=== PATIENT | female | born 1985 | race Caucasian/White ===

== ENCOUNTER 2017-05-10 16:38 | Emergency (ER) | payer OTHER ==
[2017-05-10 16:53] VITALS: RESP 17
--- NOTE | 2017-05-10 17:27 | ED ---
Female Urogenital HPI - General Chief complaint: Vaginal Bleeding Stated complaint: bleeding, 6 weeks preg Time Seen by Provider: 05/10/17 16:54 Source: patient Mode of arrival: ambulatory Limitations: no limitations - History of Present Illness Initial comments: 31-year-old female patient presents to the emergency department today for evaluation of vaginal bleeding. Patient reports that she is approximately 5-6 weeks . States her last menstrual period was 03/31/2017. She is . Patient states that last evening she started to have light brown vaginal discharge with wiping. She states that it has persisted throughout the day today. States she also did have some right-sided abdominal cramping earlier today. She denies any bright red bleeding. Denies any dysuria, hematuria, urinary urgency, urinary frequency. Patient denies any recent rash, fever, chills, shortness breath, chest pain, nausea, vomiting, diarrhea, constipation, back pain, numbness, tingling, dizziness, weakness, headache, visual changes, or any other complaints. Patient has not yet had any care or confirmed intrauterine . Last Menstrual Period: 03/31/17 - Related Data Home Medications Medication Instructions Recorded Confirmed Gsd-Uyxp-Pfryo Acid 1 cap PO DAILY 05/10/17 05/10/17 [-U Capsule (formulary)] Allergies Allergy/AdvReac Type Severity Reaction Status Date / Time sulfamethoxazole Allergy Rash/Hives Verified 05/10/17 17:00 [From Bactrim] trimethoprim [From Bactrim] Allergy Rash/Hives Verified 05/10/17 17:00 Review of Systems ROS Statement: Those systems with pertinent positive or pertinent negative responses have been documented in the HPI. ROS Other: All systems not noted in ROS Statement are negative. Past Medical History Past Medical History: No Reported History History of Any Multi-Drug Resistant Organisms: None Reported Past Surgical History: No Surgical Hx Reported Past Psychological History: No Psychological Hx Reported Smoking Status: Current some day smoker Past Alcohol Use History: None Reported Past Drug Use History: None Reported General Exam Limitations: no limitations General appearance: alert, in no apparent distress, other (This is a well- developed, well-nourished adult female patient in no acute distress. Vital signs upon presentation were temperature 97.7F, pulse 94, respirations 17, blood pressure 127/68, pulse ox 98% on room air.) Eye exam: Present: normal appearance, PERRL, EOMI. Absent: scleral icterus, conjunctival injection, periorbital swelling ENT exam: Present: normal exam, normal oropharynx, mucous membranes moist Respiratory exam: Present: normal lung sounds bilaterally. Absent: respiratory distress, wheezes, rales, rhonchi, stridor Cardiovascular Exam: Present: regular rate, normal rhythm, normal heart sounds. Absent: systolic murmur, diastolic murmur, rubs, gallop, clicks GI/Abdominal exam: Present: soft, normal bowel sounds. Absent: distended, tenderness, guarding, rebound, rigid External exam: Present: normal external exam Speculum exam: Present: vaginal bleeding (Light brown, small amount). Absent: normal speculum exam By manual exam: Present: normal by manual exam. Absent: adnexal tenderness Back exam: Present: normal inspection. Absent: CVA tenderness (R), CVA tenderness (L) Neurological exam: Present: alert, oriented X3, CN II-XII intact Psychiatric exam: Present: normal affect, normal mood Skin exam: Present: warm, dry, intact, normal color. Absent: rash Course Vital Signs 05/10/17 05/10/17 16:48 19:30 Temperature 97.7 F 98.2 F Pulse Rate 94 74 Respiratory 17 17 Rate Blood Pressure 127/68 111/62 O2 Sat by Pulse 98 99 Oximetry Medical Decision Making - Medical Decision Making 31-year-old female patient presented to the emergency department today for complaints of vaginal bleeding and right-sided abdominal cramping. Patient reports that she is approximately 5 weeks . States that she had initial positive test 2 weeks ago. Physical examination was unremarkable. Physical exam was performed and did show light vaginal bleeding, round in color. Bimanual exam is unremarkable. Urinalysis was inconclusive and has been sent for culture. HCG was 368. Blood type is A+. Ultrasound was obtained and showed no current intrauterine . There was however several anechoic areas that were unclear etiology and could reflect early . There is also evidence of to uterine fibroids. Did discuss results with the patient. She is instructed to obtain repeat hCG testing in 72 hours. She is instructed to establish with an [facility] for further evaluation, she was given on-call phone number. She is instructed to return here immediately for any new, worsening, or concerning symptoms. She verbalizes understanding and agrees with this plan. - Lab Data Result diagrams: 05/10/17 17:37 05/10/17 17:37 Lab Results 05/10/17 05/10/17 05/10/17 Range/Units 17:37 17:37 17:37 WBC 7.3 (3.8-10.6) k/uL RBC 4.99 (3.80-5.40) m/uL Hgb 15.9 (11.4-16.0) gm/dL Hct 47.6 H (34.0-46.0) % MCV 95.4 (80.0-100.0) fL MCH 31.9 (25.0-35.0) pg MCHC 33.5 (31.0-37.0) g/dL RDW 12.3 (11.5-15.5) % Plt Count 218 (150-450) k/uL Neutrophils % 50 % Lymphocytes % 38 % Monocytes % 6 % Eosinophils % 3 % Basophils % 1 % Neutrophils # 3.7 (1.3-7.7) k/uL Lymphocytes # 2.8 (1.0-4.8) k/uL Monocytes # 0.4 (0-1.0) k/uL Eosinophils # 0.2 (0-0.7) k/uL Basophils # 0.1 (0-0.2) k/uL Sodium 142 (137-145) mmol/L Potassium 4.5 (3.5-5.1) mmol/L Chloride 107 (98-107) mmol/L Carbon Dioxide 25 (22-30) mmol/L Anion Gap 10 mmol/L BUN 14 (7-17) mg/dL Creatinine 0.61 (0.52-1.04) mg/dL Est GFR (MDRD) Af Amer >60 (>60 ml/min/1.73 sqM) Est GFR (MDRD) Non-Af >60 (>60 ml/min/1.73 sqM) Glucose 93 (74-99) mg/dL Calcium 9.6 (8.4-10.2) mg/dL Total Bilirubin 0.6 (0.2-1.3) mg/dL AST 36 (14-36) U/L ALT 29 (9-52) U/L Alkaline Phosphatase 68 (38-126) U/L Total Protein 7.6 (6.3-8.2) g/dL Albumin 4.4 (3.5-5.0) g/dL HCG, Quant 368.8 mIU/mL Urine Color Urine Appearance (Clear) Urine pH (5.0-8.0) Ur Specific [place] (1.001-1.035) Urine Protein (Negative) Urine Glucose (UA) (Negative) Urine Ketones (Negative) Urine Blood (Negative) Urine Nitrite (Negative) Urine Bilirubin (Negative) Urine Urobilinogen (<2.0) mg/dL Ur Leukocyte Esterase (Negative) Urine RBC (0-5) /hpf Urine WBC (0-5) /hpf Ur Squamous Epith Cells (0-4) /hpf Trichomonas Ag (Rapid) (Negative) Blood Type A Positive Blood Type Recheck No 05/10/17 05/10/17 Range/Units 17:37 19:30 WBC (3.8-10.6) k/uL RBC (3.80-5.40) m/uL Hgb (11.4-16.0) gm/dL Hct (34.0-46.0) % MCV (80.0-100.0) fL MCH (25.0-35.0) pg MCHC (31.0-37.0) g/dL RDW (11.5-15.5) % Plt Count (150-450) k/uL Neutrophils % % Lymphocytes % % Monocytes % % Eosinophils % % Basophils % % Neutrophils # (1.3-7.7) k/uL Lymphocytes # (1.0-4.8) k/uL Monocytes # (0-1.0) k/uL Eosinophils # (0-0.7) k/uL Basophils # (0-0.2) k/uL Sodium (137-145) mmol/L Potassium (3.5-5.1) mmol/L Chloride (98-107) mmol/L Carbon Dioxide (22-30) mmol/L Anion Gap mmol/L BUN (7-17) mg/dL Creatinine (0.52-1.04) mg/dL Est GFR (MDRD) Af Amer (>60 ml/min/1.73 sqM) Est GFR (MDRD) Non-Af (>60 ml/min/1.73 sqM) Glucose (74-99) mg/dL Calcium (8.4-10.2) mg/dL Total Bilirubin (0.2-1.3) mg/dL AST (14-36) U/L ALT (9-52) U/L Alkaline Phosphatase (38-126) U/L Total Protein (6.3-8.2) g/dL Albumin (3.5-5.0) g/dL HCG, Quant mIU/mL Urine Color Light Yellow Urine Appearance Clear (Clear) Urine pH 6.0 (5.0-8.0) Ur Specific [place] 1.005 (1.001-1.035) Urine Protein Negative (Negative) Urine Glucose (UA) Negative (Negative) Urine Ketones Negative (Negative) Urine Blood Small H (Negative) Urine Nitrite Negative (Negative) Urine Bilirubin Negative (Negative) Urine Urobilinogen <2.0 (<2.0) mg/dL Ur Leukocyte Esterase Small H (Negative) Urine RBC 1 (0-5) /hpf Urine WBC 11 H (0-5) /hpf Ur Squamous Epith Cells 8 H (0-4) /hpf Trichomonas Ag (Rapid) Negative (Negative) Blood Type Blood Type Recheck - Radiology Data Radiology results: report reviewed, image reviewed Transvaginal ultrasound was obtained report was reviewed in its entirety, there is no IUP seen at this time, to an anechoic areas within endometrium too early to calculate a early gestation versus other etiology. Multiple anechoic area scattered throughout the myometrium as well, to probable fibroids anterior uterine fundus. [place] by Dr. Zamora shows no adnexal mass. No evidence of ectopic . No evidence of true uterine gestational sac. Disposition Clinical Impression: Threatened , Vaginal bleeding affecting early Disposition: HOME SELF-CARE Condition: Good Instructions: Threatened Miscarriage (ED), Uterine Fibroids (ED), First Trimester Vaginal Bleed (ED) Additional Instructions: Rest and increase fluids. Follow-up with [facility] as soon as possible. Monitor bleeding, this worsens or changes presented back to the emergency department. Follow-up with her primary care physician for recheck in 1-2 days. Return here immediately for any new, worsening, or concerning symptoms. Referrals: None,Stated [Primary Care Provider] - 1-2 days Judith Collins MD [STAFF PHYSICIAN] - 1-2 days Time of Disposition: 19:11
[2017-05-10 17:57] LABS: Basophils # (A) 0.1 k/uL (0-0.2); Basophils % (A) 1 %; Eosinophils # (A) 0.2 k/uL (0-0.7); Eosinophils % (A) 3 %; HCT 47.6 % (34.0-46.0); HGB 15.9 gm/dL (11.4-16.0); Lymphocytes # (A) 2.8 k/uL (1.0-4.8); Lymphocytes % (A) 38 %; MCH 31.9 pg (25.0-35.0); MCHC 33.5 g/dL (31.0-37.0); MCV 95.4 fL (80.0-100.0); Mean Platelet Volume 6.7; Monocytes # (A) 0.4 k/uL (0-1.0); Monocytes % (A) 6 %; Neutrophils # (A) 3.7 k/uL (1.3-7.7); Neutrophils % (A) 50 %; Platelet Count 218 k/uL (150-450); RBC 4.99 m/uL (3.80-5.40); RDW 12.3 % (11.5-15.5); WBC 7.3 k/uL (3.8-10.6)
[2017-05-10 17:59] LABS: Appearance,Urine Clear (Clear); Bilirubin,Urine Negative (Negative); Blood,Urine Small (Negative); Color,Urine Light Yellow; Glucose,Urine (UA) Negative (Negative); Ketones,Urine Negative (Negative); Leukocyte Esterase,Urine Small (Negative); Nitrite,Urine Negative (Negative); Protein,Urine Negative (Negative); RBC,Urine 1 /hpf (0-5); Specific Gravity,Urine 1.005 (1.001-1.035); Squamous Epithelial Cell,Urine 8 /hpf (0-4); Urobilinogen,Urine <2.0 mg/dL (<2.0); WBC,Urine 11 /hpf (0-5)
[2017-05-10 18:06] LABS: ALT 29 U/L (9-52); AST 36 U/L (14-36); Albumin 4.4 g/dL (3.5-5.0); Alkaline Phosphatase 68 U/L (38-126); Anion Gap 10 mmol/L; Blood Urea Nitrogen 14 mg/dL (7-17); Calcium 9.6 mg/dL (8.4-10.2); Carbon Dioxide 25 mmol/L (22-30); Chloride 107 mmol/L (98-107); Glucose 93 mg/dL (74-99); Sodium 142 mmol/L (137-145); Total Bilirubin 0.6 mg/dL (0.2-1.3); Total Protein 7.6 g/dL (6.3-8.2)
[2017-05-10 18:23] LABS: HCG,Quantitative Serum 368.8 mIU/mL
--- NOTE | 2017-05-10 18:25 | US ---
EXAMINATION TYPE: US OB <= 14 wk fetus DATE OF EXAM: 05/10/2017 COMPARISON: NONE CLINICAL HISTORY: Pain. Pt states light vaginal bleeding that started today EXAM PERFORMED: Transvaginal (TV) and Transabdominal (TA) EXAM MEASUREMENTS: GESTATIONAL AGE / DATING Physician Established: Not yet established Dates by LMP: (5 weeks/5 days) EDC: 01/05/2018 Dates by First Scan: No prior Dates by Current Scan for: No IUP seen at this time MATERNAL ANATOMY Uterus: 10.0 x 5.2 x 6.4 Right Ovary: 3.5 x 2.1 x 2.3 Left Ovary: 3.8 x 1.9 x 2.2 Post CDS / Adnexa: wnl Presence of free fluid: No Presence of corpus luteal cyst: Right Ovary= 1.7 x 1.3 x 1.3 cm Presence of subchorionic bleed: No GESTATION / SURVEY No IUP seen at this time/ Two anechoic areas within endometrium too early to calculate if early ges tation vs. other etiology/ Multiple anechoic areas scattered throughout myometrium as well/ Two prob able fibroids anterior uterine fundus 1)= 1.6 x 1.7 x 1.6 cm 2)= 1.7 x 1.6 x 1.8 cm Date of LMP: 03/31/2017 Beta HcG (if available): Not available at time of exam IMPRESSION: No adnexal mass. No evidence of ectopic . No evidence of intrauterine gestational sac.
[2017-05-10 18:27] LABS: Potassium 4.5 mmol/L (3.5-5.1)
[2017-05-10 19:31] VITALS: BP 111/62; PULSE 74; TEMP 98.2
[2017-05-12 13:47] LABS: Chlamydia trachomatis rRNA Not detected (Not detected); Neisseria gonorrhoeae rRNA Not detected (Not detected)
== END 2017-05-10 19:32 | disposition home or self-care (01) ==
LOC: EC 16:38
DX: O20.0 Threatened abortion (principal); O99.331 Smoking (tobacco) complicating pregnancy, first trimester; F17.200 Nicotine dependence, unspecified, uncomplicated; Z79.899 Other long term (current) drug therapy; Z88.2 Allergy status to sulfonamides; Z3A.01 Less than 8 weeks gestation of pregnancy
CPT/HCPCS: 36415; 76801; 76817; 80053; 81001; 84702; 85025; 86900; 86901; 87070; 87086; 87205; 87491; 87591; 87808; 99284

== ENCOUNTER → 2017-05-12 | Outpatient (CLI) | payer SELFPAY | END | disposition home or self-care (01) | LOC: LABWHC1 12:17 | PROVIDERS: ATTEND Nurse Practitioner | DX: O26.851 Spotting complicating pregnancy, first trimester (principal); Z3A.00 Weeks of gestation of pregnancy not specified | CPT/HCPCS: 36415; 84702 ==

== ENCOUNTER → 2017-09-01 | Outpatient (CLI) | payer OTHER ==
[2017-09-01 17:40] LABS: Basophils % (A) 1 %; Eosinophils # (A) 0.3 k/uL (0-0.7); Eosinophils % (A) 4 %; HCT 45.9 % (34.0-46.0); HGB 15.4 gm/dL (11.4-16.0); Lymphocytes # (A) 2.7 k/uL (1.0-4.8); Lymphocytes % (A) 38 %; MCH 30.4 pg (25.0-35.0); MCHC 33.5 g/dL (31.0-37.0); MCV 90.6 fL (80.0-100.0); Monocytes # (A) 0.3 k/uL (0-1.0); Monocytes % (A) 5 %; Neutrophils # (A) 3.6 k/uL (1.3-7.7); Neutrophils % (A) 51 %; Platelet Count 213 k/uL (150-450); RBC 5.07 m/uL (3.80-5.40); RDW 12.4 % (11.5-15.5); WBC 7.1 k/uL (3.8-10.6)
[2017-09-01 17:52] LABS: ALT 26 U/L (9-52); AST 24 U/L (14-36); Albumin 4.2 g/dL (3.5-5.0); Alkaline Phosphatase 69 U/L (38-126); Anion Gap 14 mmol/L; Blood Urea Nitrogen 14 mg/dL (7-17); Calcium 9.2 mg/dL (8.4-10.2); Carbon Dioxide 24 mmol/L (22-30); Chloride 104 mmol/L (98-107); Cholesterol 173 mg/dL (<200); Glucose 107 mg/dL (74-99); HDL Cholesterol 48 mg/dL (40-60); LDL Cholesterol,Calculated 90 mg/dL (0-99); Potassium 4.2 mmol/L (3.5-5.1); Sodium 142 mmol/L (137-145); Total Bilirubin 0.3 mg/dL (0.2-1.3); Triglycerides 177 mg/dL (<150)
[2017-09-02 00:35] LABS: Vitamin D 25 Hydroxy 18.2 ng/mL (30.0-100.0)
[2017-09-02 01:42] LABS: HIV AB P24 Non-Reactive (Non-Reactive); HIV P24 AG Non-Reactive (Non-Reactive)
[2017-09-02 02:06] LABS: Hepatitis C IgG Antibody Reactive (Non-Reactive)
[2017-09-03 15:05] LABS: HCV Quant Log <1.08 (<1.08); HCV Quantitative Result <12 IU/mL (<12)
== END | disposition home or self-care (01) ==
LOC: LABWHC1 17:15
PROVIDERS: ATTEND Family Medicine
DX: B18.2 Chronic viral hepatitis C (principal); F41.8 Other specified anxiety disorders; Z13.220 Encounter for screening for lipoid disorders
CPT/HCPCS: 36415; 80053; 80061; 82306; 84443; 85025; 86780; 86803; 87340; 87390; 87522

== ENCOUNTER → 2020-09-26 | Outpatient (CLI) | payer OTHER ==
--- NOTE | 2020-09-27 07:48 | US ---
EXAMINATION TYPE: Transabdominal DATE OF EXAM: 09/26/2020 2:51 PM COMPARISON: NONE CLINICAL HISTORY: Confirm dates Z36. A1, smoker EXAM PERFORMED: Transabdominal (TA) EXAM MEASUREMENTS: GESTATIONAL AGE / DATING Physician Established: Not yet established Dates by LMP: (8 weeks/5 days) EDC: 05/03/2021 Dates by First Scan: No previous Dates by Current Scan for: ( 8 weeks/3 days) EDC: 05/05/2021 MATERNAL ANATOMY Uterus: 12.3 x 8.7 x 7.9cm Right Ovary: 2.7 x 1.7 x 1.3cm Left Ovary: 2.9 x 2.3 x 2.3cm Post CDS / Adnexa: wnl Presence of free fluid: no Presence of corpus luteal cyst: not identified Presence of subchorionic bleed: no GESTATION / SURVEY CRL: 1.9cm (8 weeks/3 days) Yolk Sac (normal less than 6mm): 2.9mm Heart Rate: 172 bpm Rhythm: Normal IUP: Single Date of LMP: 07/27/2020 Beta HcG (if available): NA Single, live IUP, 8 weeks/3 days, EDC: 05/05/2021, [id number]. IMPRESSION: Single intrauterine with an average ultrasound gestational age of 8 weeks and 3 days. heart rate is 172 bpm.
== END | disposition home or self-care (01) ==
LOC: RADUSWWP 14:11
PROVIDERS: ATTEND Obstetrics & Gynecology
DX: Z36.89 Encounter for other specified antenatal screening (principal); O36.8310 Maternal care for abnormalities of the fetal heart rate or rhythm, first trimester, not applicable or unspecified; Z3A.08 8 weeks gestation of pregnancy
CPT/HCPCS: 76801

== ENCOUNTER 2021-04-27 06:00 | Inpatient (IN) | payer OTHER ==
--- NOTE | 2021-04-26 07:45 | P.HPOB ---
History of Present Illness H&P Date: 04/26/21 Chief Complaint: Requested induction of labor This patient is a pleasant 35-year-old 5 para 3 female estimated date of confinement 05/02/2021 estimated gestational age 39 weeks who presents to labor and delivery for requested induction of labor. Patient's care is complicated by advanced for maternal age. She did have a normal genetic testing done however did decline maternal medicine evaluation. Patient most recently has developed facial pain and was found to have a tooth abscess. Patient now is requesting induction of labor. She has had normal testing including nonstress tests and growth ultrasounds. Review of Systems Constitutional: Reports as per HPI Genitourinary: Reports Menstruation: Reports amenorrhea Past Medical History Past Medical History: No Reported History Additional Past Medical History / Comment(s): previous 3 term vaginal deliveries. Patient is a recovered IV drug user (heroin) but states that she has not used any opioids in 4 years. History of Any Multi-Drug Resistant Organisms: None Reported Past Surgical History: No Surgical Hx Reported Past Anesthesia/Blood Transfusion Reactions: No Reported Reaction Past Psychological History: No Psychological Hx Reported Past Alcohol Use History: None Reported Past Drug Use History: Heroin, Marijuana Medications and Allergies Home Medications Medication Instructions Recorded Confirmed Type Acetaminophen Tab [Tylenol Tab] 1,000 mg PO QID PRN 04/23/21 04/23/21 History Amoxicillin/Potassium Clav 1 tab PO Q12HR #20 tab 04/23/21 Rx [Augmentin 875-125 Tablet] Fexofenadine HCl [Mikayla Allergy] 180 mg PO DAILY 04/23/21 04/23/21 History diphenhydrAMINE [Benadryl] 25 mg PO DAILY 04/23/21 04/23/21 History Allergies Allergy/AdvReac Type Severity Reaction Status Date / Time sulfamethoxazole Allergy Rash/Hives Verified 04/23/21 17:30 [From Bactrim] trimethoprim [From Bactrim] Allergy Rash/Hives Verified 04/23/21 17:30 Exam - OBG Physical Exam Abdomen: bowel sounds normal, no diffuse tenderness, no bruit present, no guarding noted, no hepatomegaly, no splenomegaly, no mass Vulva: both: normal Vagina: normal moisture, no discharge Cervix: no lesion (cervix in the office is 1 cm dilated and effaced -2 station.), no discharge Uterus: enlarged (fundal height 38 cm) Results labs show she is a positive, rubella immune, RPR nonreactive, hepatitis B negative, HIV is nonreactive, maternal 12/27/2020 was normal 46 excess, group B strep was negative, most recent growth ultrasound showed estimated weight at 6 lbs. 2 oz. Assessment and Plan Assessment: This is a pleasant 35-year-old 5 para 3 female 39 weeks gestation admitted to labor and delivery for requested induction of labor. Plan is induction of labor and anticipate vaginal delivery. (1) 39 weeks gestation of Status: Acute Code(s): Z3A.39 - 39 WEEKS GESTATION OF SNOMED Code(s): 37895454 (2) Elderly multigravida Status: Acute Code(s): O09.529 - SUPERVISION OF ELDERLY MULTIGRAVIDA, UNSPECIFIED TRIMESTER SNOMED Code(s): 677067197 (3) Elective induction of labor planned Status: Acute Code(s): CVL1146 - SNOMED Code(s): 496860434 (4) Dental abscess Status: Acute Code(s): K04.7 - PERIAPICAL ABSCESS WITHOUT SINUS SNOMED Code(s): 290600745
[2021-04-27] MEDS: LACTATED RINGERS 1,000 ML IV SCH ×3 (06:36→11:49)
[2021-04-27] MEDS ORDERED: LIDOCAINE 0.5% (PF) 5 MG/ML (50 ML SDV) SQ PRN (06:42)
[2021-04-27] MEDS ORDERED: OXYTOCIN 30 UNITS/500 ML NS 30 UNIT in SALINE 1 500ML.BAG IV SCH ×2 (06:42→15:15)
[2021-04-27] MEDS ORDERED: TERBUTALINE 1 MG/ML VIAL SQ PRN (06:42)
[2021-04-27] MEDS ORDERED: METHYLERGONOVINE 0.2 MG/ML 1 ML AMP IM PRN (06:42)
[2021-04-27] MEDS ORDERED: OXYTOCIN 10 UNIT/ML 1 ML VIAL IM PRN (06:42)
[2021-04-27] MEDS ORDERED: CARBOPROST TROMETHAMINE 250 MCG/ML 1 ML AMP IM PRN (06:42)
[2021-04-27 06:51] LABS: Basophils % (A) 0 %; Eosinophils # (A) 0.2 k/uL (0-0.7); Eosinophils % (A) 2 %; HCT 38.6 % (34.0-46.0); HGB 13.3 gm/dL (11.4-16.0); Lymphocytes # (A) 2.2 k/uL (1.0-4.8); Lymphocytes % (A) 23 %; MCH 33.2 pg (25.0-35.0); MCHC 34.5 g/dL (31.0-37.0); MCV 96.2 fL (80.0-100.0); Mean Platelet Volume 7.5; Monocytes # (A) 0.7 k/uL (0-1.0); Monocytes % (A) 7 %; Neutrophils % (A) 65 %; Platelet Count 196 k/uL (150-450); RBC 4.01 m/uL (3.80-5.40); RDW 12.4 % (11.5-15.5); WBC 9.3 k/uL (3.8-10.6)
[2021-04-27] MEDS ORDERED: BUTORPHANOL 1 MG/ML 1 ML VIAL IV PRN (10:18)
[2021-04-27] MEDS ORDERED: ROPIVACAINE 100 MG, fentaNYL (PF). 200 MCG in SODIUM CHLORIDE 0.9% 76 ML EPIDURAL ONE (11:36)
[2021-04-27 13:37] LABS: Amphetamine Screen,Urine Not Detected (NotDetected); Barbiturate Screen,Urine Not Detected (NotDetected); Benzodiazepines Screen,Urine Not Detected (NotDetected); Cocaine Screen,Urine Not Detected (NotDetected); Methadone Screen, Urine Not Detected (NotDetected); Opiate Screen,Urine Not Detected (NotDetected); Oxycodone Screen, Urine Not Detected (NotDetected); Phencyclidine Screen,Urine Not Detected (NotDetected); Tricyclic Antidepressant,Urine Not Detected (NotDetected); Urn Cannabinoid Scrn Detected (NotDetected)
[2021-04-27] MEDS ORDERED: diphenhydrAMINE 25 MG CAP PO PRN (15:02)
[2021-04-27] MEDS ORDERED: HYDROCORTISONE 2.5% RECTAL CREAM 30 GM TUBE RECTAL PRN (15:02)
[2021-04-27] MEDS ORDERED: BENZOCAINE/MENTHOL SPRAY 1 GM/SPRAY AEROSOL TOPICAL PRN (15:02)
[2021-04-27] MEDS ORDERED: SIMETHICONE 80 MG CHEWABLE PO PRN (15:02)
[2021-04-27] MEDS ORDERED: LANOLIN CREAM 5 GM TUBE TOPICAL PRN (15:02)
[2021-04-27] MEDS ORDERED: ACETAMINOPHEN TAB 325 MG TAB PO PRN (15:02)
[2021-04-27] MEDS ORDERED: bisacodyL 10 MG SUPP RECTAL PRN (15:02)
[2021-04-27] MEDS ORDERED: diphenhydrAMINE 50 MG/ML 1 ML VIAL IVP PRN (15:02)
[2021-04-27] MEDS ORDERED: ZOLPIDEM 5 MG TAB PO PRN (15:02)
--- NOTE | 2021-04-27 15:06 | P.PROBDLV ---
Vaginal Delivery Note - . Vaginal Delivery Note: Normal vaginal delivery viable female Apgars 9 and 9 delivery time is 1448 hrs. Please see dictated H&P for intimate details of this patient's admission. Brief summary this is a pleasant 35-year-old 5 para 3 female 39-2/7 weeks gestation who is admitted to labor and delivery for elective induction of labor. On admission patient is to [facility] dilated has artificial rupture membranes for clear fluid. Patient's labor is induced with Pitocin per protocol. Patient's labor progresses and she does get 1 dose of Stadol and then an epidural for pain control. Patient progresses quickly thereafter and gets to complete. With approximate 2 pushes she pushes the head to the perineum. The posterior perineum was supported and we have controlled delivery of the 's head over the intact perineum. Mouth and nares are bulb suctioned. Infant is straight occiput anterior presentation. There is no evidence of a nuchal cord. The then spontaneously delivers anteriorly and posteriorly rest this 's body. This is without maternal effort. This is a vigorous viable female infant Apgars 9 and 9 delivery time was 1448 hrs. After delivery of the the umbilical cord was immediately doubly clamped and cut due to a history of jaundice with her other children. The placenta is then spontaneously delivered intact. Estimated blood loss approximately 150 mL. There is a first-degree posterior laceration which is very small but reapproximated using 3-0 Vicryl. Excellent reapproximation is noted. All counts are correct 3. There are no complications. Infant and mother stable delivery room.
[2021-04-27] MEDS: IBUPROFEN 600 MG TAB PO PRN (16:06)
[2021-04-27 18:21] LABS: Urine Alcohol Negative (Negative); Urine Barbiturate Negative (Negative); Urine Cocaine Negative (Negative); Urine Methadone Negative (Negative); Urine Opiates Negative (Negative); Urine Phencyclidine Negative (Negative)
[2021-04-27] MEDS: SENNOSIDES-DOCUSATE SODIUM 1 EACH TAB PO SCH (20:10)
[2021-04-28] MEDS: IBUPROFEN 600 MG TAB PO PRN ×2 (04:16→10:50)
--- NOTE | 2021-04-28 05:58 | P.PNOBGVD ---
Subjective - Subjective Patient reports: Reports appetite normal, Reports voiding normally, Reports pain well controlled, Reports ambulating normally : doing well Objective - Latest Vital Signs Latest vital signs: Vital Signs Temp Pulse Resp BP Pulse Ox 04/27/21 23:33 97.9 F 63 16 121/72 97 04/27/21 20:00 97.4 F L 76 16 114/74 96 04/27/21 16:51 98.7 F 68 17 122/67 97 04/27/21 16:21 82 18 134/78 04/27/21 15:51 98.2 F 67 18 131/70 04/27/21 15:36 68 18 139/79 04/27/21 15:21 62 18 130/71 04/27/21 15:06 73 18 134/75 04/27/21 14:51 73 18 146/70 04/27/21 06:22 96.9 F L 70 16 139/88 95 Intake and Output 04/27/21 04/27/21 04/28/21 14:59 22:59 06:59 Output Total 100 Balance -100 Output: Urine 100 Other: # Voids 1 - Exam Lungs: bilateral: normal Chest: Normal S1, Normal S2 Extremities: Present: normal Abdomen: Present: normal appearance, soft Uterus: Present: normal, firm - Labs Labs: Abnormal Lab Results - Last 24 Hours (Table) 04/27/21 04/27/21 Range/Units 10:25 13:22 U Cannabinoids Screen Positive A (Negative) U Marijuana (THC) Screen Detected H (NotDetected) Assessment and Plan Assessment: day #1. Patient is resting without complaints and wishes to go home. Vital signs are stable she's afebrile. Uterus is firm nontender and she is having normal lochia. My impression this is a normal course. Plan is to continue routine care discharge home later today (1) 39 weeks gestation of Current Visit: No Status: Acute Code(s): Z3A.39 - 39 WEEKS GESTATION OF SNOMED Code(s): 31078058 (2) Elderly multigravida Current Visit: No Status: Acute Code(s): O09.529 - SUPERVISION OF ELDERLY MULTIGRAVIDA, UNSPECIFIED TRIMESTER SNOMED Code(s): 811523059 (3) Elective induction of labor planned Current Visit: No Status: Acute Code(s): BNJ0704 - SNOMED Code(s): 789112863 (4) Dental abscess Current Visit: No Status: Acute Code(s): K04.7 - PERIAPICAL ABSCESS WITHOUT SINUS SNOMED Code(s): 261831958
--- NOTE | 2021-04-28 06:02 | P.DS ---
Providers Date of admission: 04/27/21 06:12 Expected date of discharge: 04/28/21 Attending physician: Ricci Dove Primary care physician: Stated None - Discharge Diagnosis(es) (1) 39 weeks gestation of Current Visit: No Status: Acute (2) Elderly multigravida Current Visit: No Status: Acute (3) Elective induction of labor planned Current Visit: No Status: Acute (4) Dental abscess Current Visit: No Status: Acute Hospital Course: Please see dictated H&P for intimate details of this patient's admission. In brief summary this is a pleasant 35-year-old 5 para 3 female estimated gestational age 39-2/7 weeks gestation is admitted to labor and delivery for elective induction of labor. Patient is admitted she is uncomplicated induction of labor goes on to have a vaginal delivery viable female . Please see dictated delivery note. day #1 patient's doing well wishes to go home. Patient's felt to be stable for discharge home follow up with me in 6 weeks. Procedures: induction of labor and normal vaginal delivery Patient Condition at Discharge: Good Plan - Discharge Summary New Discharge Prescriptions: New Ibuprofen [Motrin] 600 mg PO Q6HR PRN #30 tab PRN Reason: Pain No Action diphenhydrAMINE [Benadryl] 25 mg PO DAILY Amoxicillin [Amoxicillin 125 MG Chew Tab] 125 mg PO Q12H Acetaminophen Tab [Tylenol] 500 mg PO DAILY PRN PRN Reason: Pain Pnv No.95/Ferrous Fum/Folic AC [ Multivitamin Tablet] 1 tab PO DAILY Discharge Medication List diphenhydrAMINE [Benadryl] 25 mg PO DAILY 04/23/21 [History] Acetaminophen Tab [Tylenol] 500 mg PO DAILY PRN 04/27/21 [History] Amoxicillin [Amoxicillin 125 MG Chew Tab] 125 mg PO Q12H 04/27/21 [History] Pnv No.95/Ferrous Fum/Folic AC [ Multivitamin Tablet] 1 tab PO DAILY 04/27/21 [History] Ibuprofen [Motrin] 600 mg PO Q6HR PRN #30 tab 04/28/21 [Rx] Follow up Appointment(s)/Referral(s): Ricci Dove MD [STAFF PHYSICIAN] - 6 Weeks Patient Instructions/Handouts: Vaginal Delivery (DC) Activity/Diet/Wound Care/Special Instructions: No intercourse or anything per vagina for 6 weeks. Please call if any fever, chills, excessive vaginal bleeding, and/or abdominal pain. Discharge Disposition: HOME SELF-CARE
[2021-04-28] MEDS: SENNOSIDES-DOCUSATE SODIUM 1 EACH TAB PO SCH (14:42)
[2021-04-28 17:02] VITALS: BP 136/87; PULSE 54; RESP 16; TEMP 97.4
== END 2021-04-28 19:06 | disposition home or self-care (01) | DRG 807 ==
LOC: 4FBP 06:12
PROVIDERS: ADMIT Obstetrics & Gynecology; ATTEND Obstetrics & Gynecology
PROC: 10E0XZZ Delivery of Products of Conception, External Approach (ICD-10-PCS; principal; 2021-04-27)
PROC: 0HQ9XZZ Repair Perineum Skin, External Approach (ICD-10-PCS; 2021-04-27)
DX: O70.0 First degree perineal laceration during delivery (principal); Z37.0 Single live birth; K04.7 Periapical abscess without sinus; Z3A.39 39 weeks gestation of pregnancy
CPT/HCPCS: 80306; 85025; 86850; 86900; 86901

== ENCOUNTER 2023-03-01 07:59 | Emergency (ER) | payer OTHER ==
[2023-03-01 08:28] VITALS: BP 111/74; PULSE 70; RESP 20; TEMP 100.1
[2023-03-01] MEDS ORDERED: ACETAMINOPHEN TAB 325 MG TAB PO STA (08:48)
--- NOTE | 2023-03-01 08:49 | ED ---
General Adult HPI - General Chief complaint: Fever Stated complaint: Fever Time Seen by Provider: 03/01/23 08:30 Source: patient, RN notes reviewed Mode of arrival: ambulatory Limitations: no limitations - History of Present Illness Initial comments: Patient is a pleasant 37-year-old female presenting to the emergency department with fever. Onset of symptoms was 4 days ago. Patient has had myalgias. Patient has had mild headaches. Patient has noticed discomfort and redness of the left breast. Patient is breast-feeding. - Related Data Home Medications Medication Instructions Recorded Confirmed diphenhydrAMINE [Benadryl] 25 mg PO DAILY 04/23/21 04/27/21 Acetaminophen Tab [Tylenol] 500 mg PO DAILY PRN 04/27/21 04/27/21 Amoxicillin [Amoxicillin 125 MG 125 mg PO Q12H 04/27/21 04/27/21 Chew Tab] Pnv No.95/Ferrous Fum/Folic AC 1 tab PO DAILY 04/27/21 04/27/21 [ Multivitamin Tablet] Previous Rx's Medication Instructions Recorded Ibuprofen [Motrin] 600 mg PO Q6HR PRN #30 tab 04/28/21 Clindamycin [Cleocin] 450 mg PO Q6H #40 cap 03/01/23 Allergies Allergy/AdvReac Type Severity Reaction Status Date / Time sulfamethoxazole Allergy Rash/Hives Verified 03/01/23 08:15 [From Bactrim] trimethoprim [From Bactrim] Allergy Rash/Hives Verified 03/01/23 08:15 Review of Systems ROS Statement: Those systems with pertinent positive or pertinent negative responses have been documented in the HPI. ROS Other: All systems not noted in ROS Statement are negative. Constitutional: Reports: fever Eyes: Denies: eye pain ENT: Denies: ear pain Respiratory: Denies: cough, dyspnea Cardiovascular: Denies: chest pain Endocrine: Denies: fatigue Gastrointestinal: Denies: abdominal pain Genitourinary: Denies: dysuria Musculoskeletal: Denies: back pain Skin: Reports: as per HPI, rash Neurological: Reports: as per HPI Past Medical History Past Medical History: No Reported History Additional Past Medical History / Comment(s): previous 3 term vaginal deliveries. Pt states her blood pressure dropped really low after her last delivery and she "coded blue". Patient is a recovered IV drug user (heroin) but states that she has not used any opioids in 4 years. Hepatitis C per History of Any Multi-Drug Resistant Organisms: None Reported Past Surgical History: No Surgical Hx Reported Past Anesthesia/Blood Transfusion Reactions: No Reported Reaction Past Psychological History: Depression Smoking Status: Current every day smoker Past Alcohol Use History: None Reported Past Drug Use History: Heroin, Marijuana - Past Family History Mother Family Medical History: No Reported History General Exam Limitations: no limitations General appearance: alert, in no apparent distress Head exam: Present: normocephalic Eye exam: Present: normal appearance Neck exam: Present: normal inspection. Absent: meningismus Respiratory exam: Present: normal lung sounds bilaterally Cardiovascular Exam: Present: regular rate, normal rhythm GI/Abdominal exam: Present: soft. Absent: tenderness Extremities exam: Present: normal inspection Neurological exam: Present: alert Psychiatric exam: Present: normal affect, normal mood Skin exam: Present: erythema (Mild erythema lower side of left breast with some mild tenderness) Course Vital Signs 03/01/23 08:13 Temperature 100.1 F H Pulse Rate 70 Respiratory 20 Rate Blood Pressure 111/74 O2 Sat by Pulse 99 Oximetry Medical Decision Making - Medical Decision Making Was pt. sent in by a medical professional or institution (, PA, CLINICAL QUALITY ANALYST, urgent care, hospital, or senior care...) When possible be specific @ -No Did you speak to anyone other than the patient for history (EMS, parent, family, police, friend...)? What history was obtained from this source @ -No Did you review nursing and triage notes (agree or disagree)? Why? @ -I reviewed and agree with nursing and triage notes Were old charts reviewed (outside hosp., previous admission, EMS record, old EKG, old radiological studies, urgent care reports/EKG's, senior care records)? Report findings @ -No old charts were reviewed Differential Diagnosis (chest pain, altered mental status, abdominal pain women, abdominal pain men, vaginal bleeding, weakness, fever, dyspnea, syncope, headache, dizziness, GI bleed, back pain, seizure, CVA, palpatations, mental health, musculoskeletal)? @ -Differential Fever: Pneumonia, viral URI, endocarditis, myocarditis, pericarditis, otitis, sinusitis, peritonsillar Abscess, retropharyngeal Abscess, epiglottitis, peritonitis, appendicitis, Kelsy cystitis, diverticulitis, hepatitis, colitis, UTI, PID, TOA, pyelonephritis, prostatitis, epididymitis, meningitis, encephalitis, pulmonary embolism, CVA, thyroid storm, pancreatitis, adrenal crisis, cavernous sinus thrombosis, this is not meant to be an all-inclusive list. EKG interpreted by me (3pts min.). @ -As above X-rays interpreted by me (1pt min.). @ -None done CT interpreted by me (1pt min.). @ -None done U/S interpreted by me (1pt. min.). @ -None done What testing was considered but not performed or refused? (CT, X-rays, U/S, labs)? Why? @ -None What meds were considered but not given or refused? Why? @ -None Did you discuss the management of the patient with other professionals (professionals i.e. , PA, CLINICAL QUALITY ANALYST, lab, RT, psych nurse, social insurance adviser, kiss mixer, teacher, wildlife conservation officer, case briefer)? Give summary @ -No Was smoking cessation discussed for >3mins.? @ -No Was critical care preformed (if so, how long)? @ -No Were there social determinants of health that impacted care today? How? (Homelessness, low income, unemployed, alcoholism, drug addiction, transportation, low edu. Level, literacy, decrease access to med. care, detention, rehab)? @ -No Was there de-escalation of care discussed even if they declined (Discuss DNR or withdrawal of care, Hospice)? DNR status @ -No What co-morbidities impacted this encounter? (DM, HTN, Smoking, COPD, CAD, Cancer, CVA, ARF, Chemo, Hep., AIDS, mental health diagnosis, sleep apnea, morbid obesity)? @ -None Was patient admitted / discharged? Hospital course, mention meds given and route, prescriptions, significant lab abnormalities, going to OR and other pertinent info. @ -Patient presents with fever and breast redness and tenderness. Symptoms consistent with mastitis. Patient will be covered with antibiotics for this and recommended follow-up. Undiagnosed new problem with uncertain prognosis? @ -No Drug Therapy requiring intensive monitoring for toxicity (Heparin, Nitro, Insulin, Cardizem)? @ -No Were any procedures done? @ -No Diagnosis/symptom? @ -Mastitis Acute, or Chronic, or Acute on Chronic? @ -Acute Uncomplicated (without systemic symptoms) or Complicated (systemic symptoms)? @ -default Side effects of treatment? @ -No Exacerbation, Progression, or Severe Exacerbation? @ -No Poses a threat to life or bodily function? How? (Chest pain, [place], [place], pneumonia, PE, COPD, DKA, ARF, appy, cholecystitis, CVA, Diverticulitis, Homicidal, Golden icidal, threat to staff... and all critical care pts) @ -No Disposition Clinical Impression: Mastitis Disposition: HOME SELF-CARE Condition: Stable Instructions (If sedation given, give patient instructions): Fever in Adults (ED), Mastitis (ED) Additional Instructions: Prescription for antibiotics at the pharmacy. Please do follow-up with primary care physician in the next couple days for recheck. Please also follow-up with your STEAM CLEANER. Return for increased pain, swelling, fevers, worsening symptoms or any other concerns. Prescriptions: Clindamycin [Cleocin] 450 mg PO Q6H #40 cap Is patient prescribed a controlled substance at d/c from ED?: No Referrals: Ash Loomis MD [REFERRING] - 1-2 days Ricci Dove MD [STAFF PHYSICIAN] - 1-2 days Time of Disposition: 08:47
== END 2023-03-01 09:30 | disposition home or self-care (01) ==
LOC: EC 07:59
DX: N61.0 Mastitis without abscess (principal); F32.A Depression, unspecified; F17.200 Nicotine dependence, unspecified, uncomplicated; Z88.2 Allergy status to sulfonamides; Z79.899 Other long term (current) drug therapy
CPT/HCPCS: 99283

== ENCOUNTER → 2024-01-04 | Outpatient (CLI) | payer OTHER ==
[2024-01-04 15:22] LABS: Basophils # (A) 0.05 X 10*3/uL (0.00-0.10); Eosinophils # (A) 0.21 X 10*3/uL (0.04-0.35); Eosinophils % (A) 4.1 %; HCT 46.8 % (37.2-46.3); HGB 15.6 g/dL (12.0-15.0); Lymphocytes # (A) 1.79 X 10*3/uL (0.90-5.00); Lymphocytes % (A) 35.2 %; MCHC 33.3 g/dL (32.0-37.0); MCV 95.9 FL (80.0-97.0); Mean Platelet Volume 9.9 FL (9.5-12.2); Monocytes # (A) 0.58 X 10*3/uL (0.20-1.00); Monocytes % (A) 11.4 %; NRBC Per 100 WBC 0 X 10*3/uL (0.00-0.01); Neutrophils # (A) 2.43 X 10*3/uL (1.80-7.70); Neutrophils % (A) 47.9 %; Platelet Count 156 X 10*3/uL (140-440); RBC 4.88 X 10*6/uL (4.10-5.20); RDW 12.7 % (11.5-14.5); WBC 5.08 X 10*3/uL (4.50-10.00)
[2024-01-04 19:47] LABS: ALT 380 U/L (8-44); AST 205 U/L (13-35); Albumin 4.4 g/dL (3.8-4.9); Albumin/Globulin Ratio 1.76 Ratio (1.60-3.17); Alkaline Phosphatase 61 U/L (41-126); BUN/Creat Ratio 22.29 Ratio (12.00-20.00); Blood Urea Nitrogen 15.6 mg/dL (9.0-27.0); Calcium 9.2 mg/dL (8.7-10.3); Carbon Dioxide 19.3 mmol/L (21.6-31.8); Chloride 103 mmol/L (96-109); Chol/HDL Ratio 2.17 Ratio; Globulin 2.5 g/dL (1.6-3.3); Glucose 109 mg/dL (70-110); LDL Cholesterol,Calculated 83.5 mg/dL (0.0-131.0); Potassium 4.5 mmol/L (3.5-5.5); Sodium 136 mmol/L (135-145); Total Bilirubin 0.4 mg/dL (0.3-1.2); Total Protein 6.9 g/dL (6.2-8.2)
== END | disposition home or self-care (01) ==
LOC: LABWHC1 11:54
PROVIDERS: ATTEND Family Medicine
DX: Z00.00 Encounter for general adult medical examination without abnormal findings (principal)
CPT/HCPCS: 36415; 80053; 80061; 82306; 84443; 85025

== ENCOUNTER → 2024-02-25 | Outpatient (CLI) | payer OTHER ==
[2024-02-25 15:37] LABS: Hepatitis C IgG Antibody Reactive (Nonreactive)
[2024-02-25 15:38] LABS: Hepatitis A Antibody IgM Nonreactive (Nonreactive); Hepatitis B Core IgM Nonreactive (Nonreactive); Hepatitis B Surface Antigen Nonreactive (Nonreactive)
[2024-02-25 15:50] LABS: ALT 63 U/L (8-44); AST 48 U/L (13-35); Albumin 4.1 g/dL (3.8-4.9); Albumin/Globulin Ratio 1.64 Ratio (1.60-3.17); Alkaline Phosphatase 48 U/L (41-126); Bilirubin, Conjugated <0.20 mg/dL (0.20-0.40); Bilirubin,Unconjugated >0 mg/dL (0.20-1.00); Globulin 2.5 g/dL (1.6-3.3); Total Bilirubin 0.2 mg/dL (0.3-1.2); Total Protein 6.6 g/dL (6.2-8.2)
== END | disposition home or self-care (01) ==
LOC: LABWHC1 11:25
PROVIDERS: ATTEND Pediatrics
CPT/HCPCS: 36415; 80074; 80076; 86803; 87521